=== PATIENT | male | born 1995 | race Caucasian/White ===

== ENCOUNTER 2018-01-06 19:43 | Emergency (ER) | payer SELFPAY ==
[~2018-01-06] VITALS: Ht 182.9 cm; Wt 106.6 kg
[2018-01-06 20:16] LABS: BASO % 1 % (0-3); EOS # 0.2 x10^3/uL (0.0-0.7); EOS % 2 % (0-3); HEMATOCRIT 47.4 % (39.0-53.0); HEMOGLOBIN 16.8 g/dL (13.0-17.5); LYMPH # 2.7 x10^3/uL (1.0-4.8); LYMPH % 32 % (24-48); MEAN CORPUSCULAR HEMOGLOBIN 31 pg (25-35); MEAN CORPUSCULAR HGB CONC 35 g/dL (31-37); MEAN CORPUSCULAR VOLUME 89 fL (79-100); MONO # 0.6 x10^3/uL (0.0-1.1); MONO % 7 % (0-9); NEUT # 5.1 x10^3uL (1.8-7.7); NEUT % 59 % (31-73); PLATELET COUNT 241 x10^3/uL (140-400); RED BLOOD COUNT 5.34 x10^6/uL (4.30-5.70); RED CELL DISTRIBUTION WIDTH 12.2 % (11.5-14.5); WHITE BLOOD COUNT 8.6 x10^3/uL (4.0-11.0)
[2018-01-06 20:25] LABS: CALCIUM 9.4 mg/dL (8.5-10.1); CREATININE 1.2 mg/dL (0.7-1.3); POTASSIUM 3.3 mmol/L (3.5-5.1)
[2018-01-06 20:31] LABS: ALBUMIN 4.3 g/dL (3.4-5.0); ALBUMIN/GLOBULIN RATIO 1.2 (1.0-1.7); TOTAL BILIRUBIN 0.5 mg/dL (0.2-1.0); TOTAL PROTEIN 7.8 g/dL (6.4-8.2)
[2018-01-06 21:10] VITALS: BP 144/92
--- NOTE | 2018-01-07 00:03 | PHYS DOC ---
Past Medical History Past Medical History: No Pertinent History Past Surgical History: No Surgical History Alcohol Use: Occasionally Drug Use: None Adult General Chief Complaint Chief Complaint: DIZZY/LIGHT HEADED HPI HPI Patient is a 22 year old female who is presenting with multiple symptoms. Primary complaint is the floaters in the right eye comes and goes usually sees in the morning and has been there for 3 months or more he did call his dad today who advised an immediate emergency room evaluation. he has also had intermittent dizziness and lightheadedness especially with standing he is also worried about that. Review of Systems Review of Systems Constitutional: Denies fever or chills [] Eyes: Denies change in visual acuity, neg for chest pain GI: Denies abdominal pain, nausea, vomiting, bloody stools or diarrhea [] Neurologic: Denies headache, focal weakness or sensory changes [] Endocrine: Denies polyuria or polydipsia [] All other systems were reviewed and found to be within normal limits, except as documented in this note. Allergies Allergies Allergies Coded Allergies Type Severity Reaction Last Updated Verified No Known Drug Allergies 01/06/18 No Physical Exam Physical Exam Constitutional: Well developed, well nourished, no acute distress, non-toxic appearance. [] HENT: Normocephalic, atraumatic, bilateral external ears normal, oropharynx moist, no oral exudates, nose normal. [] Eyes: PERRLA, EOMI, conjunctiva normal, no discharge. [] No visual field cut Neck: Normal range of motion, no tenderness, supple, no stridor. [] Cardiovascular:Heart rate regular rhythm, no murmur [] Lungs & Thorax: Bilateral breath sounds clear to auscultation [] Abdomen: Bowel sounds normal, soft, no tenderness, no masses, no pulsatile masses. [] Skin: Warm, dry, no erythema, no rash. [] Back: No tenderness, no CVA tenderness. [] Extremities: No tenderness, no cyanosis, no clubbing, ROM intact, no edema. [] Neurologic: Alert and oriented X 3, normal motor function, normal sensory function, no focal deficits noted. [] Psychologic: Affect normal, judgement normal, mood normal. [] Current Patient Data Vital Signs Vital Signs Date Time Temp Pulse Resp B/P (MAP) Pulse Ox O2 Delivery O2 Flow Rate FiO2 01/06/18 21:10 81 18 8 01/06/18 19:45 98.5 162/94 (116) Room Air 98.5 Lab Values Laboratory Tests Test 01/06/18 20:05 White Blood Count 8.6 x10^3/uL (4.0-11.0) Red Blood Count 5.34 x10^6/uL (4.30-5.70) Hemoglobin 16.8 g/dL (13.0-17.5) Hematocrit 47.4 % (39.0-53.0) Mean Corpuscular Volume 89 fL (79-100) Mean Corpuscular Hemoglobin 31 pg (25-35) Mean Corpuscular Hemoglobin Concent 35 g/dL (31-37) Red Cell Distribution Width 12.2 % (11.5-14.5) Platelet Count 241 x10^3/uL (140-400) Neutrophils (%) (Auto) 59 % (31-73) Lymphocytes (%) (Auto) 32 % (24-48) Monocytes (%) (Auto) 7 % (0-9) Eosinophils (%) (Auto) 2 % (0-3) Basophils (%) (Auto) 1 % (0-3) Neutrophils # (Auto) 5.1 x10^3uL (1.8-7.7) Lymphocytes # (Auto) 2.7 x10^3/uL (1.0-4.8) Monocytes # (Auto) 0.6 x10^3/uL (0.0-1.1) Eosinophils # (Auto) 0.2 x10^3/uL (0.0-0.7) Basophils # (Auto) 0.0 x10^3/uL (0.0-0.2) Sodium Level 140 mmol/L (136-145) Potassium Level 3.3 mmol/L (3.5-5.1) L Chloride Level 103 mmol/L (98-107) Carbon Dioxide Level 26 mmol/L (21-32) Anion Gap 11 (6-14) Blood Urea Nitrogen 16 mg/dL (8-26) Creatinine 1.2 mg/dL (0.7-1.3) Estimated GFR (Cockcroft-Gault) 75.0 BUN/Creatinine Ratio 13 (6-20) Glucose Level 124 mg/dL (70-99) H Calcium Level 9.4 mg/dL (8.5-10.1) Total Bilirubin 0.5 mg/dL (0.2-1.0) Aspartate Amino Transferase (AST) 19 U/L (15-37) Alanine Aminotransferase (ALT) 29 U/L (16-63) Alkaline Phosphatase 64 U/L (46-116) Total Protein 7.8 g/dL (6.4-8.2) Albumin 4.3 g/dL (3.4-5.0) Albumin/Globulin Ratio 1.2 (1.0-1.7) Laboratory Tests 01/06/18 20:05 Laboratory Tests 01/06/18 20:05 EKG EKG [] Radiology/Procedures Radiology/Procedures [] Course & Med Decision Making Course & Med Decision Making Pertinent Labs and Imaging studies reviewed. (See chart for details) []22-year-old male presenting with floater for 3 months in the right eye as well as mild dizziness that sounds like lightheadedness with standing patient was advised to increase potassium at home was advised to have a eye Dr. evaluation with the next couple weeks with a story actually does not really sound like concerning. He was also advised to follow-up for his blood pressure check within 1 month. Dragon Disclaimer Dragon Disclaimer This electronic medical record was generated, in whole or in part, using a voice recognition dictation system. Departure Departure Impression: Primary Impression: Floaters Disposition: 01 HOME, SELF-CARE Condition: STABLE Patient Instructions: Dizziness, [id number] Additional Instructions: please have your blood pressure checked in one month please see an eye doctor in 2-3 weeks.for your floaters SUSAN JOHNSON MD Jan 07, 2018 00:03
== END 2018-01-06 21:13 | disposition home or self-care (01) ==
LOC: ER 19:43
DX: H43.391 Other vitreous opacities, right eye (principal); R42 Dizziness and giddiness
CPT/HCPCS: 36415; 80053; 85025; 99284